=== PATIENT | female | born 1950 | race Caucasian/White ===

== ENCOUNTER 2016-12-25 09:27 | Day surgery (SDC) | payer MEDICARE, BC ==
[~2016-12-25 09:27] MED LIST: Lactated Ringers 1,000 ML IV SCH; Sodium Chloride 0.9% 10 ML Syringe FLUSH PRN
[2016-12-25] MEDS ORDERED: Propofol 200 MG/20 ML SDV ONE ×2 (10:42→10:48)
--- NOTE | 2016-12-25 10:49 | PCM.PN ---
- General Info Date of Service: 12/25/16 - Review of Systems Systems Review Comment:: 66-year-old female referred for colonoscopy. She has noted a recent change in bowel habits. She is medically stable to proceed with no significant change in her recent health status. Her recent history and physical is reviewed. I have discussed the proposed colonoscopy with the patient. She understands indications options and risks. She agrees to proceed. - Patient Data Vitals - Most Recent: Last Vital Signs Temp 98.7 F 12/25/16 10:03 Pulse 87 12/25/16 10:03 Resp 20 12/25/16 10:03 BP 157/101 H 12/25/16 10:03 Pulse Ox 98 12/25/16 10:03 Weight - Most Recent: 103.873 kg Med Orders - Current: Current Medications Lactated Ringer's (Ringers, Lactated) 1,000 mls @ 125 mls/hr IV ASDIRECTED ELVIA Last Admin: 12/25/16 10:31 Dose: 125 mls/hr Sodium Chloride (Saline Flush) 10 ml FLUSH ASDIRECTED PRN PRN Reason: Keep Vein Open Discontinued Medications Propofol (Diprivan 20 Ml) Confirm Administered Dose 400 mg .ROUTE .STK-MED ONE Stop: 12/25/16 10:43 - Problem List Review Problem List Initiated/Reviewed/Updated: Yes - Assessment Assessment:: Change in Bowel Habits - Plan Plan:: Colonoscopy
--- NOTE | 2016-12-25 11:34 | PCM.OPNOTE ---
- General Post-Op/Procedure Note Date of Surgery/Procedure: 12/25/16 Operative Procedure(s): Colonoscopy with Polypectomy Findings: Extensive Sigmoid Diverticulosis Cecal Polyp Pre Op Diagnosis: Change in bowel habits Post-Op Diagnosis: Diverticulosis. Colon Polyp Anesthesia Technique: MAC Primary Surgeon: Jose Alanis Pathology: Cecal Polyp Output, Urine Amount: 0 EBL in mLs: 0 Complications: None Condition: Good Free Text/Narrative:: Intake & Output 12/24/16 12/25/16 12/25/16 22:59 06:59 14:59 Intake Total 500 Balance 500
--- NOTE | 2016-12-25 14:05 | OR ---
Date of Procedure: 12/25/2016 PREOPERATIVE DIAGNOSIS: Change in bowel habits. POSTOPERATIVE DIAGNOSES: 1. Sigmoid diverticulosis. 2. Cecal polyp. OPERATION PERFORMED: Colonoscopy with polypectomy. INDICATIONS FOR SURGERY: This 66-year-old female, who has been noticing a change in her bowel habits recently with some increasing difficulty in evacuation. She also has intermittent abdominal pain. She is referred for colonoscopy. FINDINGS: The patient has a single polyp noted in the cecum, this is 6 mm in size and sessile in configuration. She has [id number] diverticulosis in the sigmoid region. The area does not appear acutely inflamed, although there is some narrowing and tortuosity making it difficult to advance the scope through this area. The region is able to be traversed and no visible signs of mass or extrinsic compression were identified. PROCEDURE IN DETAIL: The patient was taken to the operating room. She was given intravenous sedation and with her in the left lateral decubitus position, digital rectal exam was performed showing no rectal masses. The Olympus colonoscope was inserted into the rectum. Retroflexed examination of the rectal canal was performed. The scope was then carefully advanced under direct visualization through the entire length of the colon until the cecum was reached. Traversing the sigmoid region is somewhat difficult because of the diverticulosis, but was eventually able to be safely traversed and the scope was able to be advanced to the cecum. Cecal acquisition was confirmed by noting the normal internal cecal anatomy as well as identifying the light to transilluminate the abdominal wall in the right lower quadrant. While examining the cecum, the above-described polyp was identified, it was removed with a cautery snare and retrieved into a polyp trap. The scope was then slowly withdrawn, sequentially re-examining the colonic segments until the entire colon and rectum had been fully examined. The scope was then removed and the patient was taken from the operating room in satisfactory condition. ESTIMATED BLOOD LOSS: Zero. COMPLICATIONS: None. PROGNOSIS: Good. BERTRAND Alanis MD /[id number]
[2016-12-25 14:07] VITALS: BP 138/53
== END 2016-12-25 13:00 | disposition home or self-care (01) ==
LOC: LL.SDS 09:27
PROVIDERS: ATTEND Surgery
DX: D12.0 Benign neoplasm of cecum (principal); K57.30 Diverticulosis of large intestine without perforation or abscess without bleeding; J45.909 Unspecified asthma, uncomplicated; I10 Essential (primary) hypertension; E66.9 Obesity, unspecified; E87.6 Hypokalemia; Z91.010 Allergy to peanuts; Z91.012 Allergy to eggs; Z88.8 Allergy status to other drugs, medicaments and biological substances; Z91.048 Other nonmedicinal substance allergy status; Z90.49 Acquired absence of other specified parts of digestive tract; Z90.710 Acquired absence of both cervix and uterus; Z98.890 Other specified postprocedural states; Z79.899 Other long term (current) drug therapy
CPT/HCPCS: 45385; J2704; J7120; 00810-QZ; 88305